=== PATIENT | female | born 1965 | race Caucasian/White ===

== ENCOUNTER 2017-06-28 07:40 | Day surgery (SDC) | payer BC ==
[2017-06-28] MEDS: POLYMYXIN/BACITRACIN 1L IRRIG IRR
[2017-06-28] MEDS: BUPIVACAINE 0.25% (MPF) 30 ML INJ INJ
[2017-06-28] MEDS ORDERED: PROPOFOL 20 ML (08:50)
[2017-06-28] MEDS ORDERED: CEFAZOLIN 1 GM INJ (08:51)
[2017-06-28] MEDS ORDERED: KETOROLAC 30 MG INJ (08:51)
[2017-06-28] MEDS ORDERED: LIDOCAINE 2% (SDV) 5 ML INJ (08:51)
[2017-06-28] MEDS ORDERED: ONDANSETRON 4 MG INJ (08:51)
[2017-06-28] MEDS ORDERED: FENTAnyl 50 MCG/ML VIAL (08:52)
[2017-06-28] MEDS ORDERED: POVIDONE IODINE 10% 28.4 GM OINT (09:39)
[2017-06-28] MEDS ORDERED: BUPIVACAINE 0.25% (MPF) 30 ML INJ (09:39)
[2017-06-28] MEDS ORDERED: DEXAMETHASONE 4 MG/ML 1 ML INJ (09:55)
[2017-06-28] MEDS ORDERED: FENTAnyl 50 MCG/ML VIAL IV (11:00)
[2017-06-28] MEDS ORDERED: HYDROmorphONE (0.2 MG/ML) 10ML SYG IV (11:00)
[2017-06-28] MEDS: HYDROmorphONE (0.2 MG/ML) 10ML SYG IV (11:29)
[2017-06-28] MEDS: ONDANSETRON 4 MG INJ IV (11:30)
== END 2017-06-28 12:53 | disposition home or self-care (01) ==
LOC: SDS 07:40
DX: D16.32 Benign neoplasm of short bones of left lower limb (principal); Z47.2 Encounter for removal of internal fixation device; F17.200 Nicotine dependence, unspecified, uncomplicated
CPT/HCPCS: 20680; 84703; 88304; 88311